=== PATIENT | male | born 1990 | race Caucasian/White ===

== ENCOUNTER 2020-10-26 23:02 | Emergency (ER) | payer OTHER ==
[~2020-10-26] VITALS: Ht 180.3 cm; Wt 140.6 kg
[~2020-10-26 23:02] MED LIST: DARVOCET-N 1001 EAC1 PO; IBUPROFEN 600600 M1 PO; NOHOMEMEDICATIONS; ZANTAC 150MG T150 M1
[2020-10-26] MEDS ORDERED: LISINOPRIL-HCT1 EACH PO (23:16)
[2020-10-26] MEDS ORDERED: OMEPRAZOLE 20 M20 M1 PO (23:16)
[2020-10-26] MEDS ORDERED: ASA81BEC PO (23:17)
[2020-10-26] MEDS ORDERED: LIPITOR10 MG PO (23:17)
[2020-10-26] MEDS ORDERED: ACETAMINOPHEN-1 EAC2 PO (23:43)
[2020-10-26] MEDS ORDERED: PENICILLIN V P500 MG PO (23:43)
[2020-10-26] MEDS ORDERED: IBUPROFEN 800800 MG PO (23:43)
[2020-10-26] MEDS ORDERED: PERIDEX15 ML SWISH&SPIT (23:44)
[2020-10-27] MEDS ORDERED: NORCO5 PO (00:01)
[2020-10-27 00:06] VITALS: BP 126/72
== END 2020-10-27 00:06 | disposition home or self-care (01) ==
LOC: M.ERS 23:02
DX: A69.1 Other Vincent's infections (principal); K02.9 Dental caries, unspecified; Z88.5 Allergy status to narcotic agent; Z91.013 Allergy to seafood; Z88.7 Allergy status to serum and vaccine

== ENCOUNTER 2020-11-25 15:41 | Emergency (ER) | payer OTHER ==
[~2020-11-25] VITALS: Ht 180.3 cm; Wt 143.3 kg
[~2020-11-25 15:41] MED LIST changes: +ACETAMINOPHEN-1 EAC2 PO; +ASA81BEC PO; +IBUPROFEN 800800 MG PO; +LIPITOR10 MG PO; +LISINOPRIL-HCT1 EACH PO; +NORCO5 PO; +OMEPRAZOLE 20 M20 M1 PO; +PENICILLIN V P500 MG PO; +PERIDEX15 ML SWISH&SPIT
[2020-11-25 17:58] VITALS: BP 141/92
== END 2020-11-25 17:59 | disposition home or self-care (01) ==
LOC: M.ERS 15:41
DX: U07.1 COVID-19 (principal); Z88.5 Allergy status to narcotic agent; Z91.013 Allergy to seafood; Z88.8 Allergy status to other drugs, medicaments and biological substances; Z79.82 Long term (current) use of aspirin; Z79.899 Other long term (current) drug therapy